=== PATIENT | male | born 1950 | race Caucasian/White ===

== ENCOUNTER → 2024-08-28 | Outpatient (CLI) | payer MEDICARE ==
[2024-08-28 15:33] LABS: Basophils # (A) 0.05 X 10*3/uL (0.00-0.10); Basophils % (A) 0.8 %; Eosinophils # (A) 0.16 X 10*3/uL (0.04-0.35); Eosinophils % (A) 2.5 %; HCT 49.8 % (39.6-50.0); HGB 16.1 g/dL (13.0-17.0); Immature Grans, Automated 0.60 %; Lymphocytes # (A) 1.77 X 10*3/uL (0.90-5.00); Lymphocytes % (A) 27.9 %; MCH 30.1 pg (27.0-32.0); MCHC 32.3 g/dL (32.0-37.0); MCV 93.3 FL (80.0-97.0); Monocytes # (A) 0.96 X 10*3/uL (0.20-1.00); Monocytes % (A) 15.1 %; NRBC Per 100 WBC 0 X 10*3/uL (0.00-0.01); Neutrophils # (A) 3.37 X 10*3/uL (1.80-7.70); Neutrophils % (A) 53.1 %; Platelet Count 208 X 10*3/uL (140-440); RBC 5.34 X 10*6/uL (4.40-5.60); RDW 13.1 % (11.5-14.5); WBC 6.35 X 10*3/uL (4.50-10.00)
[2024-08-28 16:06] LABS: Anion Gap 13.60 mmol/L (4.00-12.00); BUN/Creat Ratio 15.89 Ratio (12.00-20.00); Blood Urea Nitrogen 14.3 mg/dL (9.0-27.0); Calcium 8.9 mg/dL (8.7-10.3); Carbon Dioxide 22.4 mmol/L (21.6-31.8); Chloride 106 mmol/L (96-109); Ferritin 449.0 ng/mL (22.0-322.0); Glucose 86 mg/dL (70-110); Iron 80 UG/DL (65-175); Potassium 4.6 mmol/L (3.5-5.5); Sodium 142 mmol/L (135-145); Total Iron Binding Capacity 354 UG/DL (228-460); Vitamin B12 308.0 pg/mL (200.0-944.0)
[2024-08-29 02:19] LABS: Bilirubin,Urine Negative (Negative); Blood,Urine Negative (Negative); Color,Urine Yellow (Yellow); Ketones,Urine Negative (Negative); Nitrite,Urine Negative (Negative); PH, Urine 5.5; Specific Gravity,Urine 1.023 (1.001-1.030); Urobilinogen,Urine 0.2 E.U./DL
[2024-08-29 02:26] LABS: Bacteria,Urine None Seen (None Seen)
== END | disposition home or self-care (01) ==
LOC: LABPAT 12:14
PROVIDERS: ATTEND Urology
DX: Z01.812 Encounter for preprocedural laboratory examination (principal); C61 Malignant neoplasm of prostate; D75.1 Secondary polycythemia; Z71.3 Dietary counseling and surveillance
CPT/HCPCS: 80048; 81001; 82607; 82668; 82728; 82747; 83021; 83050; 83540; 83550; 84466; 85025; 85045; 86850; 86900; 86901; 87086